=== PATIENT | male | born 1995 ===

== ENCOUNTER 2017-07-20 15:47 | Emergency (ER) | payer MEDICAID, OTHER ==
[2017-07-20] MEDS ORDERED: Diph,Pert(Acell),Tet Vac 0.5 ML SYR IM ONE (16:03)
--- NOTE | 2017-07-20 16:06 | Emergency Department Record ---
History of Present Illness - General Chief Complaint: Laceration(s) Stated Complaint: LACERATION ON FINGER OF RT HAND Time Seen by Provider: 07/20/17 15:59 Source: Patient Mode of Arrival: Ambulatory Limitations: No limitations - History of Present Illness Initial Commments: The patient is here due to a lac to his R hand which occurred 30 minutes ago. He accidently banged his R hand on a metal object and sustained a small lac to his R hand over the 3rd MCP joint dorsally. There is no pain with ROM of the 3rd finger. His Td is not UTD. Onset/Timin -: Hour(s) Place: Home Context: Accidental - Orick Coma Scale Eye Response: (4) Open spontaneously Motor Response: (6) Obeys commands Verbal Response: (5) Oriented Orick Total: 15 - Related Data Patient Tetanus UTD (within 5 yrs): No Home Medications Medication Instructions Recorded Confirmed Last Taken Dextroamphetamine/Amphetamine 30 mg PO DAILY 07/20/17 07/20/17 Unknown [Adderall] Hyoscyamine Sulfate [Nulev] 0.125 mg PO ASDIR PRN 07/20/17 07/20/17 07/18/17 Previous Rx's Medication Instructions Recorded Cephalexin [Keflex] 500 mg PO QID #20 cap 07/20/17 Allergies Allergy/AdvReac Type Severity Reaction Status Date / Time No Known Drug Allergies Allergy Verified 07/20/17 16:01 Travel Screening - Travel/Exposure Within Last 30 Days Have you traveled within the last 30 days?: No - Travel/Exposure Within Last Year Have you traveled outside the [place] in the last year?: No - Additonal Travel Details Have you been exposed to anyone with a communicable illness?: No - Travel Symptoms Symptom Screening: None Past Medical History - SOCIAL HISTORY Smoking Status: Never smoker Alcohol Use: Occasional Drug Use: None - RESPIRATORY Hx Respiratory Disorders: No - CARDIOVASCULAR Hx Cardio Disorders: No - NEURO Hx Neuro Disorders: No - GI Hx GI Disorders: Yes Hx Irritable Bowel: Yes - Hx Genitourinary Disorders: No - ENDOCRINE Hx Endocrine Disorders: No - MUSCULOSKELETAL Hx Musculoskeletal Disorders: No - PSYCH Hx Psych Problems: No - HEMATOLOGY/ONCOLOGY Hx Hematology/Oncology Disorders: No Family Medical History Any Significant Family History?: No Physical Exam - General General Appearance: Alert, Cooperative, No acute distress - Head Head exam: Atraumatic, Normocephalic, Normal inspection - Eye Eye exam: Normal appearance, PERRL - Extremities Extremities exam: Full ROM (There is normal R 3rd finger extension and flexion with no pain or weakness.), Normal capillary refill. negative: Normal inspection (There is a 1 cm lac to the dorsal MCP joint. The R hand and fingers are NVI. There is no bony tenderness.), Tenderness (There is no significant bony tenderness around the lac.) Image of Hand: 1 - 1 cm superficial lac. Course Vital Signs 07/20/17 15:51 Temperature 98.2 F Pulse Rate 119 H Respiratory 16 Rate Blood Pressure 144/72 Pulse Ox 98 - Reevaluation(s) Reevaluation #1: Procedure note: The R hand lac was cleansed with betadine and anesth. with 1.5 cc's Lido 1% with Epi. The lac was lavaged with sterile saline and explored. The lac was down near the tendon but there was no tendon violation. The lac was closed with 3 4.0 nylon sutures. There were no complications. 07/20/17 16:24 Disposition Disposition: Discharge Clinical Impression: Hand laceration Qualifiers: Encounter type: initial encounter Foreign body presence: without foreign body Laterality: right Qualified Code(s): S61.411A - Laceration without foreign body of right hand, initial encounter Disposition: Home, Self-Care Condition: (2) Stable Instructions: Laceration (ED) Additional Instructions: Keep dry for 2 days then no soaking. Watch for signs of infection. Take the Keflex as directed. Have the sutures removed in 10 days. Prescriptions: Cephalexin [Keflex] 500 mg PO QID #20 cap Forms: Patient Portal Access Time of Disposition: 16:23 Quality - Quality Measures Quality Measures: N/A - Blood Pressure Screening View Details: Yes Does Patient Have Any of the Following: No Blood Pressure Classification: Pre-Hypertensive BP Reading Systolic Measurement: 139 Diastolic Measurement: 85 Screening for High Blood Pressure: < Pre-Hypertensive BP, F/U Documented > [ [id number]] Pre-Hypertensive Follow-up Interventions: Referral to alternative/primary care provider.
== END 2017-07-20 16:37 | disposition home or self-care (01) ==
LOC: ER 15:47
DX: S61.212A Laceration without foreign body of right middle finger without damage to nail, initial encounter (principal); W22.8XXA Striking against or struck by other objects, initial encounter
CPT/HCPCS: 12001; 90715; 96372; 99283